=== PATIENT | female | born 1990 | race Caucasian/White ===

== ENCOUNTER 2021-04-21 11:15 | Outpatient (REF) | payer OTHER, SELFPAY ==
[2021-04-21 14:06] LABS: MANUAL DIFF FLAG NO
[2021-04-21 14:18] LABS: Basophils Percent Auto 0.5 % (0-2); Eosinophils Absolute Auto 0.3 X10*3/uL (0.0-0.4); Eosinophils Percent Auto 5.1 % (0-4); Hematocrit 41.6 % (37.0-47.0); Hemoglobin 13.9 g/dl (12.0-16.0); Imm Gran Abs Auto 0.02 X10*3/uL (0.00-0.03); Imm Gran Pct Auto 0.3 % (0.0-0.4); Lymphocytes Absolute Auto 1.3 X10*3/uL (1.2-4.9); Lymphocytes Percent Auto 21.7 % (20-40); Mean Corpuscular HGB Conc 33.4 g/dl (31.0-35.0); Mean Corpuscular Hemoglobin 30.9 pg (27.0-33.0); Mean Corpuscular Volume 92.4 fL (80.0-98.0); Mean Platelet Volume 9.6 fL (9.4-12.3); Monocytes Absolute Auto 0.4 X10*3/uL (0.1-1.2); Monocytes Percent Auto 6.8 % (2-11); Neutrophils Absolute Auto 3.9 x10*3/uL (2.0-8.3); Neutrophils Percent Auto 65.6 % (45-73); Platelet Count 199 X10*3/uL (160-400); Red Cell Distribution Width 12.1 % (11.0-16.0); White Blood Count 5.9 X10*3/uL (4.8-10.8)
[2021-04-21 14:32] LABS: Anion Gap 12 (12-20); Blood Urea Nitrogen 9 mg/dL (9-16); Calcium 8.8 mg/dL (8.4-10.2); Carbon Dioxide 25 mmol/L (22-29); Chloride 108 mmol/L (96-108); Cholesterol 131 mg/dL; Estimated Glomerular Filt Rate > 60; Glucose Random 73 mg/dL (60-115); Sodium 141 mmol/L (135-145)
== END 2021-04-21 11:16 | disposition home or self-care (01) ==
LOC: HO.10HDL 11:15
PROVIDERS: Visit Provider Internal Medicine
DX: F90.9 Attention-deficit hyperactivity disorder, unspecified type (principal); J30.1 Allergic rhinitis due to pollen
CPT/HCPCS: 36415; 80048; 82465; 85025

== ENCOUNTER 2021-07-13 11:11 | Outpatient (REF) | payer OTHER, SELFPAY ==
[2021-07-13 11:37] LABS: COVID-19 Test Negative (Negative); IDNOW Serial# 08D9AD1C
== END 2021-07-13 11:12 | disposition home or self-care (01) ==
LOC: HO.LNP 11:11
PROVIDERS: PCP Internal Medicine; Visit Provider Internal Medicine
DX: Z20.822 Contact with and (suspected) exposure to COVID-19 (principal)
CPT/HCPCS: 87635

== ENCOUNTER 2021-07-22 10:26 | Outpatient (REF) | payer OTHER, SELFPAY ==
[2021-07-22 10:46] LABS: COVID-19 Test Negative (Negative)
== END 2021-07-22 10:27 | disposition home or self-care (01) ==
LOC: HO.LNP 10:26
PROVIDERS: PCP Internal Medicine; Visit Provider Internal Medicine
DX: Z20.822 Contact with and (suspected) exposure to COVID-19 (principal)
CPT/HCPCS: 87635

== ENCOUNTER 2022-09-02 12:36 | Outpatient (REF) | payer OTHER, SELFPAY ==
[2022-09-02 13:21] LABS: MANUAL DIFF FLAG NO
[2022-09-02 13:30] LABS: Basophils Percent Auto 0.4 % (0-2); Eosinophils Absolute Auto 0.2 X10*3/uL (0.0-0.4); Eosinophils Percent Auto 3.1 % (0-4); Hematocrit 43.3 % (37.0-47.0); Hemoglobin 14.4 g/dl (12.0-16.0); Imm Gran Abs Auto 0.02 X10*3/uL (0.00-0.03); Imm Gran Pct Auto 0.3 % (0.0-0.4); Lymphocytes Absolute Auto 1.6 X10*3/uL (1.2-4.9); Mean Corpuscular HGB Conc 33.3 g/dl (31.0-35.0); Mean Corpuscular Hemoglobin 30.5 pg (27.0-33.0); Mean Corpuscular Volume 91.7 fL (80.0-98.0); Monocytes Absolute Auto 0.4 X10*3/uL (0.1-1.2); Monocytes Percent Auto 6.6 % (2-11); Neutrophils Absolute Auto 4.4 x10*3/uL (2.0-8.3); Neutrophils Percent Auto 65.6 % (45-73); Platelet Count 220 X10*3/uL (160-400); Red Blood Count 4.72 X10*6/uL (4.20-5.50); White Blood Count 6.7 X10*3/uL (4.8-10.8)
[2022-09-02 14:12] LABS: Anion Gap 12 (12-20); Blood Urea Nitrogen 11 mg/dL (9-16); Calcium 9.1 mg/dL (8.4-10.2); Carbon Dioxide 26 mmol/L (22-29); Chloride 107 mmol/L (96-108); Cholesterol 161 mg/dL; Estimated Glomerular Filt Rate > 60; Glucose Random 87 mg/dL (60-115); Sodium 141 mmol/L (135-145)
[2022-09-02 14:26] LABS: Vitamin D 25-OH Total 73.4 ng/mL (>30)
== END 2022-09-02 12:37 | disposition home or self-care (01) ==
LOC: HO.10HDL 12:36
PROVIDERS: Visit Provider Internal Medicine
DX: Z00.00 Encounter for general adult medical examination without abnormal findings (principal); E55.9 Vitamin D deficiency, unspecified
CPT/HCPCS: 36415; 80048; 82306; 82465; 85025

== ENCOUNTER 2023-03-02 10:39 | Outpatient (REF) | payer OTHER, SELFPAY ==
--- NOTE | ~2023-03-02 | US_ITS ---
EXAMINATION: US ABDOMEN COMPLETE CLINICAL INFORMATION: Abdominal pain. COMPARISON: Ultrasound abdomen complete 06/09/2016. TECHNIQUE: Real-time imaging of the abdominal viscera. Technically difficult study secondary to body habitus. FINDINGS: PANCREAS: Normal. ABDOMINAL AORTA: The proximal, mid, and distal segments are normal in caliber. INFERIOR VENA CAVA: Visualized portions are normal. LIVER: The liver is normal in size. The liver contour is normal. Parenchymal echogenicity is normal. No focal hepatic lesion. There is no intrahepatic biliary duct dilatation seen. GALLBLADDER: The gallbladder is physiologically distended without evidence of stones, sludge, polyps, wall thickening or pericholecystic fluid. COMMON BILE DUCT: Normal in caliber measuring 0.3 cm in diameter. RIGHT KIDNEY: Normal. No hydronephrosis. No renal calculi or focal parenchymal lesions. The kidney measures 11.3 cm in maximum dimension. LEFT KIDNEY: Normal. No hydronephrosis. No renal calculi or focal parenchymal lesions. The kidney measures 10.8 cm in maximum dimension. SPLEEN: Normal. The spleen measures 9.5 cm in maximum dimension. FREE FLUID: None. US/US abdomen complete IMPRESSION: Negative exam.
--- NOTE | ~2023-03-02 | US_ITS ---
Indication: Pain EXAMINATION: Pelvic ultrasound transabdominal The narrow gauge operator is unable to perform the transvaginal exam. States patient emotionally unstable with no history of pelvic exams. On the limited imaging submitted the uterus appears to be measuring 7.6 x 3.3 x 4.9 cm. Incompletely seen. Anteverted. . The endometrial canal is only partially seen. Measured by the narrow gauge operator at 8 mm but poorly delineated.. The ovaries are not visualized. No free fluid on the imaging submitted. US/US pelvic complete IMPRESSION: Significantly limited exam as described. Transvaginal was not performed. The ovaries are not seen. No free fluid is identified transabdominally.
== END 2023-03-02 10:40 | disposition home or self-care (01) ==
LOC: HO.HMGCX 10:39
PROVIDERS: PCP Internal Medicine; Visit Provider Internal Medicine
DX: R10.9 Unspecified abdominal pain (principal)
CPT/HCPCS: 76700; 76856

== ENCOUNTER 2023-03-05 12:08 | Emergency (ER) | payer OTHER, SELFPAY ==
--- NOTE | ~2023-03-05 | XR_ITS ---
EXAMINATION: XR ABDOMEN KUB CLINICAL INDICATION: Abdominal pain. Constipation. COMPARISON: None available. TECHNIQUE: AP view of the abdomen. FINDINGS: No dilated air-filled loops of small bowel to suggest an obstructive process. Mild colonic stool burden. No acute osseous abnormality. Visualized lung bases are well aerated. XR/XR KUB IMPRESSION: Mild colonic stool burden.
[2023-03-05 12:15] VITALS: BP 115/63; PULSE 81; RESP 18; TEMP 36.7; BMI 16.5
--- NOTE | 2023-03-05 12:15 | ED_ITS ---
HPI - Abdominal Pain General Chief Complaint: Abdominal Pain Stated Complaint: severe abd pain Time Seen by Provider: 03/05/23 14:26 Source: patient, family and RN notes reviewed Mode of arrival: ambulatory Limitations: altered mental status History of Present Illness HPI narrative: This is a [id number]-female, with a hx of low functioning disabilities presenting to the emergency department, accompanied by her mother and father, with complaints of ongoing abdominal pain for the last several months worsening over the last 3-4 days. Patient crying, asking for mother. When asked where her stomach pain is, she points in the left lower quadrant. She has been seen by her primary care physician for abdominal pain, where he ordered a pelvic ultrasound last week however they do not know the results of this. The pelvic ultrasound was limited secondary to patient inability to tolerate examination. Patient has been eating and drinking without difficulty. No nausea or vomiting. Mother is unsure about bowel habits but believes that she has not been regular. When asked, patient reports that she has no clue when the last time she moved her bowels was. No other complaints or concerns at this time. MD elicited complaint: abdominal pain Pertinent past history: constipation Onset (ago): month(s) Pain Consistency: constant Location: LLQ Associated symptoms: denies other symptoms Related Data Previous Rx's Medication Instructions Recorded docusate calcium 240 mg capsule 240 mg PO DAILY #14 caps 03/05/23 polyethylene glycol 3350 17 17 g PO DAILY 2 weeks #238 grams 03/05/23 gram/dose oral powder (Miralax) Allergies Allergy/AdvReac Type Severity Reaction Status Date / Time No Known Allergies Allergy Verified 03/05/23 12:15 Review of Systems Review of Systems Yes all other systems are reviewed and are negative Constitutional: Reports as per [facility] Social History Social History Advance Directives: No Advance Directives Information Provided: No Physical Exam ED Vital Signs: Vital Signs - 24 hr 03/05/23 12:15 Temperature 98.1 F Pulse Rate 81 Respiratory Rate 18 Blood Pressure 115/63 Oxygen Delivery Method Room Air BMI result Body Mass Index 16.5 Const General: cooperative and comfortable Limitations: behavioral limitations HENMT Head: Yes normal to inspection, Yes normocephalic and Yes atraumatic Ears: hearing grossly normal bilaterally General nose exam: Normal external nose present Face and sinus: Yes normal facial exam Mouth: Normal oral and palatal mucosa present, oropharynx normal and moist mucous membranes Throat: Yes posterior oropharynx normal Eyes General: appearance normal, both eyes and all related structures Eyelids: Yes eyelids normal Conjunctivae: conjunctivae normal Sclerae: sclerae normal Pupils: Equal, round and reactive pupils present EOM: EOMs intact bilaterally Neck Neck: Yes normal visual inspection, Yes full ROM and Yes no lymphadenopathy Lymphatic: no lymphadenopathy noted Chest Chest palpation & inspection: normal inspection of the chest Resp Effort & Inspection: normal respiratory effort and able to speak in complete sentences Auscultation: clear to auscultation bilaterally, no crackles, no rales, no rhonchi and no wheezes Cardio Rate: regular rate Rhythm: regular rhythm Heart sounds: S1 normal heart sound present and S2 normal heart sound present GI Other: Abdomen is soft, nontender, nondistended, hypoactive bowel sounds present Inspection: Yes normal to inspection Skin General skin exam: no rashes or lesions noted Trauma: no lacerations or abrasions Wounds: no wounds Neuro General: moves all extremities Cranial nerves: Yes Equal, round and reactive pupils present Extrem General: Yes normal to inspection Right upper extremity: normal to inspection Left upper extremity: normal to inspection Right lower extremity: normal to inspection Left lower extremity: normal to inspection Course Course Course Narrative: This is an RME: Additional HPI, ROS, PE not included below will be deferred to primary provider. This is a 76-[id number]-female, with a hx of low functioning disabilities presenting to the emergency department with complaints of ongoing abdominal pain for the last several months. Patient with intellectual disability, crying, asking for mother. When asked where her stomach pain is she points in the left lower quadrant. She has been seen by her primary care physician for abdominal pain, where he ordered a pelvic ultrasound last week however they do not know the results of this. The pelvic ultrasound was limited secondary to patient inability to tolerate examination. Patient has been eating and drinking okay. No nausea or vomiting. Mother is unsure about bowel habits but believes that she has not been regular. Plan: labs, UA, will await further evaluation by primary provider for diagnostic imaging Medical Decision Making Medical Decision Making MDM Narrative: 32 year old female, with a hx of intellectual disabilities, presenting to the emergency department for abdominal pain for the last couple weeks. She was seen at her primary care physician where she had ultrasound of her pelvis, transvaginal was not performed, the ovaries were not seen. There is no free fluid trans abdominally. Vital signs stable, patient is afebrile. Tearful stating that she does not want the in the emergency room and does not want to stay the entire night in the hospital. Patient redirectable. On examination, abdomen is soft, nontender, nondistended. Labs were obtained revealing no leukocytosis, liver enzymes within normal limits. Electrolytes normal. Will obtain KUB x-ray for evaluation of constipation. Differential Diagnosis Differential Diagnoses: The differential diagnosis associated with the presentation includes Constipation, appendicitis-unlikely bowel obstruction-unlikely, cholelithiasis, cholecystitis, acute abdomen-unlikely Admission/Observation Consideration of admission/observation: Escalation of care including admission/observation considered Patient would have been admitted to the hospital had her work up had any findings where hospital admission was appropriate and her clinical presentation warranted hospital admission. Lab Data [facility] Lab Attestation statement: I reviewed the patient's lab results. See [facility] 03/05/23 12:39 03/05/23 12:39 Labs: Lab Results 03/05/23 Range/Units 12:39 WBC 7.9 (4.8-10.8) X10*3/uL RBC 4.86 (4.20-5.50) X10*6/uL Hgb 15.3 (12.0-16.0) g/dl Hct 45.2 (37.0-47.0) % MCV 93.0 (80.0-98.0) fL MCH 31.5 (27.0-33.0) pg MCHC 33.8 (31.0-35.0) g/dl RDW 12.0 (11.0-16.0) % Plt Count 216 (160-400) X10*3/uL MPV 8.9 L (9.4-12.3) fL Immature Gran % (Auto) 0.4 (0.0-0.4) % Neut % (Auto) 73.8 H (45-73) % Lymph % (Auto) 17.0 L (20-40) % [place] % (Auto) 6.1 (2-11) % Eos % (Auto) 2.3 (0-4) % Baso % (Auto) 0.4 (0-2) % Lymph # (Auto) 1.4 (1.2-4.9) X10*3/uL [place] # (Auto) 0.5 (0.1-1.2) X10*3/uL Eos # (Auto) 0.2 (0.0-0.4) X10*3/uL Baso # (Auto) 0.0 (0.0-0.2) X10*3/uL Abs Immat Gran (auto) 0.03 (0.00-0.03) X10*3/uL Absolute Neuts (auto) 5.9 (2.0-8.3) x10*3/uL Absolute Nucleated RBC 0.000 (0.0-0.012) X10*3/uL Nucleated RBC % (auto) 0.0 (0.0-0.2) /100WBC Sodium 140 (135-145) mmol/L Potassium 4.2 (3.3-5.1) mmol/L Chloride 109 H (96-108) mmol/L Carbon Dioxide 22 (22-29) mmol/L Anion Gap 13 (12-20) BUN 8 L (9-16) mg/dL Creatinine 0.80 (0.5-1.4) mg/dL Estim Creat Clear Calc 73.4 Estimated GFR > 60 Random Glucose 106 (60-115) mg/dL Calcium 9.1 (8.4-10.2) mg/dL Total Bilirubin 0.5 (0.0-1.0) mg/dL Direct Bilirubin 0.2 (0.0-0.5) mg/dL AST 13 (5-31) U/L ALT 18 (0-31) U/L Alkaline Phosphatase 36 L (39-117) U/L Total Protein 6.8 (6.5-8.0) g/dL Albumin 4.4 (3.5-5.0) g/dL Lipase 42 (8-78) U/L Radiology Impression Discussion of test interpretation with radiology: I have reviewed the radiologist's reading. External Record Review External record reviewed: Inpatient record, Office record, Outpatient record, Prior outpatient labs, Prior outpatient radiology, Primary care record and Outside ED record Discharge Plan Discharge Clinical Impression: Constipation Qualifiers: Constipation type: unspecified constipation type Qualified Code(s): K59.00 - Constipation, unspecified Patient Disposition: Home, Self-Care Instructions: Constipation (ED), High Fiber Diet (ED) Additional Instructions: Your symptoms are likely due to constipation. Your x-ray of your abdomen shows a xjjb-pw-ymfsroit stool burden. Your lab workup today was reassuring. Please take prescribed medication as directed. You may discontinue if you develop diarrhea. Drink plenty of fluids including plenty of water. Eat a diet full of fiber. See attached for further recommendations on incorporating more fiber rich foods. Please follow-up with your primary care physician, call on Tuesday to make an appointment. If any new or worsening symptoms occur, including but not limited to worsening abdominal pain, inability to eat or drink, vomiting, fevers, please return for re-evaluation. Prescriptions: New polyethylene glycol 3350 [Miralax] 17 gram/dose powder 17 g PO DAILY 14 Days Qty: 238 0RF docusate calcium 240 mg capsule 240 mg PO DAILY Qty: 14 0RF
[2023-03-05 12:44] LABS: MANUAL DIFF FLAG NO
[2023-03-05 12:54] LABS: Basophils Percent Auto 0.4 % (0-2); Eosinophils Absolute Auto 0.2 X10*3/uL (0.0-0.4); Eosinophils Percent Auto 2.3 % (0-4); Hematocrit 45.2 % (37.0-47.0); Hemoglobin 15.3 g/dl (12.0-16.0); Imm Gran Abs Auto 0.03 X10*3/uL (0.00-0.03); Imm Gran Pct Auto 0.4 % (0.0-0.4); Lymphocytes Absolute Auto 1.4 X10*3/uL (1.2-4.9); Mean Corpuscular HGB Conc 33.8 g/dl (31.0-35.0); Mean Corpuscular Hemoglobin 31.5 pg (27.0-33.0); Mean Platelet Volume 8.9 fL (9.4-12.3); Monocytes Absolute Auto 0.5 X10*3/uL (0.1-1.2); Monocytes Percent Auto 6.1 % (2-11); Neutrophils Absolute Auto 5.9 x10*3/uL (2.0-8.3); Neutrophils Percent Auto 73.8 % (45-73); Platelet Count 216 X10*3/uL (160-400); Red Blood Count 4.86 X10*6/uL (4.20-5.50); White Blood Count 7.9 X10*3/uL (4.8-10.8)
[2023-03-05 13:09] LABS: Alanine Aminotransferase 18 U/L (0-31); Albumin Level 4.4 g/dL (3.5-5.0); Alkaline Phosphatase 36 U/L (39-117); Anion Gap 13 (12-20); Aspartate Amino Transferase 13 U/L (5-31); Bilirubin Direct 0.2 mg/dL (0.0-0.5); Bilirubin Total 0.5 mg/dL (0.0-1.0); Blood Urea Nitrogen 8 mg/dL (9-16); Calcium 9.1 mg/dL (8.4-10.2); Carbon Dioxide 22 mmol/L (22-29); Chloride 109 mmol/L (96-108); Creatinine Clr Calc Pharmacy 73.4; Estimated Glomerular Filt Rate > 60; Glucose Random 106 mg/dL (60-115); Lipase 42 U/L (8-78); Potassium 4.2 mmol/L (3.3-5.1); Sodium 140 mmol/L (135-145); Total Protein 6.8 g/dL (6.5-8.0)
== END 2023-03-05 15:58 | disposition home or self-care (01) ==
PROVIDERS: Physician Assistant Medical; Emergency Provider Emergency Medicine Emergency Medical Services; PCP Internal Medicine
DX: K59.00 Constipation, unspecified (principal); R10.32 Left lower quadrant pain
CPT/HCPCS: 36415; 74018; 80048; 80076; 83690; 85025; 99283; 99284

== ENCOUNTER 2023-04-25 15:02 | Outpatient (REF) | payer OTHER, SELFPAY ==
[2023-04-25 17:04] LABS: Appearance Urine Clear; Color Urine Yellow; Glucose Urine UA Negative (Negative); Leukocyte Esterase Urine Small (1+) (Negative); Nitrite Urine Negative (Negative); PH 5.5 (5.0-9.0); UMIC TRIGGER UACC YES; Urine Blood Negative (Negative); Urine Ketones Negative (Negative); Urine Protein Negative (Neg-Trace)
[2023-04-25 17:51] LABS: Bacteria Urine Trace (None Seen); Hyaline Casts Urine 0-2 /LPF (0-2); UACC Culture Trigger YES
== END 2023-04-25 15:03 | disposition home or self-care (01) ==
LOC: HO.LAB 15:02
PROVIDERS: PCP Internal Medicine; Visit Provider Internal Medicine
DX: R30.0 Dysuria (principal)
CPT/HCPCS: 81001; 81003; 87086

== ENCOUNTER 2023-04-27 11:02 | Outpatient (REF) | payer OTHER, SELFPAY ==
[2023-04-27 12:11] LABS: Appearance Urine Clear; Color Urine Yellow; Glucose Urine UA Negative (Negative); Leukocyte Esterase Urine Trace (Negative); Nitrite Urine Negative (Negative); PH 5.5 (5.0-9.0); UMIC TRIGGER UACC YES; Urine Blood Negative (Negative); Urine Ketones Negative (Negative); Urine Protein Negative (Neg-Trace)
[2023-04-27 12:19] LABS: Bacteria Urine Trace (None Seen); Hyaline Casts Urine 0-2 /LPF (0-2); RBC Urine 0-2 /HPF (0-2); UACC Culture Trigger YES
== END 2023-04-27 11:03 | disposition home or self-care (01) ==
LOC: HO.LAB 11:02
PROVIDERS: PCP Internal Medicine; Visit Provider Internal Medicine
DX: R30.0 Dysuria (principal)
CPT/HCPCS: 81001; 87086

== ENCOUNTER 2023-05-18 10:06 | Outpatient (REF) | payer OTHER, SELFPAY ==
[2023-05-19 13:49] LABS: Gliadin Deamidated IgA Ab <1.0 U/mL; Gliadin Deamidated IgG Ab <1.0 U/mL; Transglutaminase Ab IgG <1.0 U/mL; Transglutaminase IgA <1.0 U/mL
[2023-05-19 16:23] LABS: Immunoglobulin A 86 mg/dL (47-310)
[2023-05-21 10:58] LABS: Endomysial IgA Antibody Negative (Negative)
== END 2023-05-18 10:07 | disposition home or self-care (01) ==
LOC: HO.10HDL 10:06
PROVIDERS: Visit Provider Internal Medicine
DX: R10.31 Right lower quadrant pain (principal); K58.8 Other irritable bowel syndrome
CPT/HCPCS: 36415; 82784; 86231; 86258; 86364

== ENCOUNTER 2024-10-12 09:45 | Outpatient (AMB) | payer MEDICARE, MEDICAID, SELFPAY ==
[2024-10-12 10:12] VITALS: BP 116/70; PULSE 63; TEMP 36.5; O2SAT 99; BMI 18.3
--- NOTE | 2024-10-12 10:12 | MHC.PC.OV ---
Vital Signs 10/12/24 10:12 Height 5 ft 5 in Weight 110 lb BMI 18.3 BP 116/70 Pulse 63 Pulse Source Pulse Oximeter Temp 97.7 F Temp Source Axillary Pulse Oximetry (%) 99 Oxygen Delivery Method Room Air Intake Visit Reasons: Routine Book Editor Required: No Accompanied by: Mother Allergies No Known Allergies Allergy (Verified 10/12/24 10:15) Tobacco use date assessed: 10/12/24 Dental Screening Dental Screen Date: 10/12/24 Did you have a dental visit in the last 12 months?: Yes Did you have a dental problem in the last 6 months where you did not have access to dental care?: No HPI HPI Comments History of Present Illness Details The patient is a 34 year old female with a past med of developmental delay, ADHD. last seen by pcp in may for URI She currently has no concerns however she is overdue for labs. ROS CONSTITUTIONAL: Denies weight loss, fever and chills. HEENT: Denies changes in vision and hearing. RESPIRATORY: Denies SOB and cough. CV: Denies palpitations and CP GI: Denies abdominal pain, nausea, vomiting and diarrhea. : Denies dysuria and urinary frequency. MSK: Denies new myalgia and joint pain. SKIN: Denies rash and pruritus. NEUROLOGICAL: Denies headache PSYCHIATRIC: Denies recent changes in mood. PHYSICAL EXAM: GENERAL: Alert and oriented x 3. NAD EYES: EOMI. Anicteric. HENT: Moist mucous membranes. No scleral icterus. No cervical lymphadenopathy. LUNGS: Clear to auscultation bilaterally. CARDIOVASCULAR: Regular rate and rhythm. No murmur. No JVD. ABDOMEN: Soft, non-tender +bs EXTREMITIES: No edema. Non-tender. SKIN: No rashes or lesions. Warm. NEUROLOGIC: No focal neurological deficits. CN II-XII grossly intact PSYCHIATRIC: Cooperative. Appropriate mood and affect [facility] Family History Mother No problems noted. Father No problems noted. Social History Housing: House Patient Tobacco Use Status: Never used Tobacco e-Cigarette/Vaping Use: Never Used service: No Current occupational status: employed Cognitive needs: No Hearing needs: No Vision needs: Yes (rx glasses) Questionnaire PHQ-9 Over the last 2 weeks, how often have you been bothered by any of the following problems? 1. Little interest or pleasure in doing things: not at all 2. Feeling down, depressed, or hopeless: not at all 3. Trouble falling or staying asleep, or sleeping too much: not at all 4. Feeling tired or having little energy: not at all 5. Poor appetite or overeating: not at all 6. Feeling bad about yourself - or that you are a failure or have let yourself or your family down: not at all 7. Trouble concentrating on things, such as reading the newspaper or watching television: not at all 8. Moving or speaking so slowly that other people could have noticed. Or the opposite - being so fidgety or restless that you have been moving around a lot more than usual: not at all 9. Thoughts that you would be better off or of hurting yourself in some way: not at all Total score: 0 Depression Screening Interpretation: Negative Depression Screening Done: Yes [id number] - PHQ-9 Billing: Yes Source: Developed by Drs. Delmer Jessica, Nita Childers, Israel Islas and colleagues, with an educational kelton from [employer]. Thrive Questionnaire Date Thrive assessed: 10/12/24 I am a: Patient Within the past 12 months, did the food you bought not last and you didn't have the money to get more?: Never true Within the past 12 months, did you worry whether your food would run out before you got money to buy more?: Never true Do you have trouble paying for medicines?: No Do you have trouble getting transportation to medical appointments?: No Do you have trouble paying your heating and electricity bill?: No Do you have trouble taking care of your child, family member or friend?: No Do you have trouble with day-to-day activities such as bathing, preparing meals, shopping, managing finances, etc.?: No Are you currently unemployed and looking for a job?: No Are you interested in more education?: No THRIVE Score: 0 AUDIT C Alcohol Use Questionnaire (AUDIT-C) 1. How often do you have a drink containing alcohol?: Never 3. How often do you have six or more drinks on one occasion?: Never Total Score: 0 RAYRAY-7 AMB Questionnaire RAYRAY-7 Date ARYRAY - 7 assessed: 10/12/24 Feeling nervous, anxious, or on edge: 0 = Not at all Not being able to stop or control worryin = Not at all Worrying too much about different things: 0 = Not at all Trouble relaxin = Not at all Being so restless that it is hard to sit still: 0 = Not at all Becoming easily annoyed or irritable: 0 = Not at all Feeling afraid as if something awful might happen: 0 = Not at all Total RAYRAY-7 score (0-4 normal; 5-9 mild; 10-14 moderate; 15-21 severe): 0 Source: Developed by Drs. Delmer Jessica, Nita Childers, Israel Islas and colleagues, with an educational kelton from [employer]. Physical exam (Primary Care) Vital Signs: Last Vital Signs Temp 97.7 F 10/12/24 10:12 Pulse 63 10/12/24 10:12 BP 116/70 10/12/24 10:12 Pulse Ox 99 10/12/24 10:12 Oxygen Delivery Method Room Air 10/12/24 10:12 BMI result Body Mass Index 18.3 Tobacco/Smoking Status: Tobacco use Status Tobacco use date assessed 10/12/24 10/12/24 10:22 Patient Tobacco Use Status Never used Tobacco 10/12/24 10:22 e-Cigarette/Vaping Use Never Used 10/12/24 10:22 PHQ-9: PHQ-9 Score PHQ-9: Total score 0 10/12/24 10:24 Depression Screening Interpretation: Negative Thrive Assessment: Date of Thrive Assessment Date Thrive assessed 10/12/24 10/12/24 10:22 Coding Level of Care Code New Pt Level 3 (01704) Diagnoses Screening for metabolic disorder Z13.228 Screening, deficiency anemia, iron Z13.0 Screening for hyperlipidemia Z13.220 Encounter to establish care Z76.89 Attention deficit hyperactivity disorder (ADHD), unspecified ADHD type F90.9 Attention deficit-hyperactivity disorder type: unspecified Developmental delay, borderline R62.50 Additional Codes PHQ-9 - 76113 - PHQ-9 Billing: Yes ([id number]) Assessment & Plan Assessment & Plan (1) Screening for metabolic disorder: Code(s): Z13.228 - Encounter for screening for other metabolic disorders Category: Medical (2) Screening, deficiency anemia, iron: Code(s): Z13.0 - Encounter for screening for diseases of the blood and blood-forming organs and certain disorders involving the immune mechanism Category: Medical (3) Screening for hyperlipidemia: Code(s): Z13.220 - Encounter for screening for lipoid disorders Category: Medical (4) Encounter to establish care: Code(s): Z76.89 - Persons encountering health services in other specified circumstances Category: Medical (5) ADHD: Code(s): F90.9 - Attention-deficit hyperactivity disorder, unspecified type Category: Medical Qualifiers: Attention deficit-hyperactivity disorder type: unspecified Qualified Code(s): F90.9 - Attention-deficit hyperactivity disorder, unspecified type (6) Developmental delay, borderline: Code(s): R62.50 - Unspecified lack of expected normal physiological development in childhood Category: Medical Plan 34 yo to establish care past medical, surgical, social and family history reviewed Labs ordered F/up one year for physical exam Orders: Orders Complete Blood Count Auto Diff Today R20.9 - Unspecified disturbances of skin sensation, Z13.0 - Encounter for screening for diseases of the blood and blood-forming organs and certain disorders involving the immune mechanism, Z13.220 - Encounter for screening for lipoid disorders, Z13.228 - Encounter for screening for other metabolic disorders Lipid Panel Today R20.9 - Unspecified disturbances of skin sensation, Z13.0 - Encounter for screening for diseases of the blood and blood-forming organs and certain disorders involving the immune mechanism, Z13.220 - Encounter for screening for lipoid disorders, Z13.228 - Encounter for screening for other metabolic disorders TSH reflex Free T4 Today R20.9 - Unspecified disturbances of skin sensation, Z13.0 - Encounter for screening for diseases of the blood and blood-forming organs and certain disorders involving the immune mechanism, Z13.220 - Encounter for screening for lipoid disorders, Z13.228 - Encounter for screening for other metabolic disorders Comprehensive Met. Panel Today R20.9 - Unspecified disturbances of skin sensation, Z13.0 - Encounter for screening for diseases of the blood and blood-forming organs and certain disorders involving the immune mechanism, Z13.220 - Encounter for screening for lipoid disorders, Z13.228 - Encounter for screening for other metabolic disorders Medications: Discontinued docusate calcium Discontinued Reason: Patient no longer taking 240 mg PO DAILY 14 caps 0RF polyethylene glycol 3350 (Miralax) Discontinued Reason: Patient no longer taking 17 grams PO DAILY 2 weeks 238 grams 0RF
--- OUTSIDE RECORDS SUMMARY | 2024-10-12 10:33 | XMS_ITS | Encounter Summary ---
Author Organization [facility] Address [address] [place] [phone] Phone Care Team Providers Care Truss Maker Name Role Phone Mar Soni MD Primary Care Provider Unava ilable Encounter Details Date Type Department Care Team (Late st Contact Info) Description 04/12/2010 Documentation [facility] [address] [place], [place] [id number] Family Medicine, Physician [address] [place] [address] Social History Tobacco Use Types Packs/Day Years Used Date Smoking Tobacco: Never Assessed Comments Unknown Sex and Gender Information Value Date Recorded Sex Assigned at Not on file Legal Sex Female 4:53 PM EDT Gender Identity Not on file Sexual Orientation Not on file documented as of this encounter Plan of Treatment Not on file documented as of this encounter Visit Diagnoses Not on filedocumented in this encounter Care Teams Truss Maker Relationship Specialty Start Date End Date Mar Soni MD PCP - General 01/21/17 documented as of this encounter
--- OUTSIDE RECORDS SUMMARY | 2024-10-12 10:33 | XMS_ITS | Clinical Summary ---
Author Organization [facility] Address [address] [place] [phone] Phone Care Team Providers Care Tobacco Weigher Name Role Phone Mar Soni MD Primary Care Provider Unava ilable Immunizations Immunization Administration Dates Next Due DTP 10/10/1996, 3,1991,09/10,1991 H1N1 03/28/2009 Hep B, ped/adol 01/30/1997,09/14/1996,05/23/1996 Hib (PRP-T) 09/10/1992, 2,1991,07/13 IPV 10/10/1996, 3,1991,07/13 Influenza Split 03/10/2011 Influenza, injectable, trivalent 03/28/2009,1208/2007 MMR 06/12/1996,09/10/1992 Meningococcal Conj (Menactra) MCV4P 03/06/2007 Td (adult) (MBL), 2 Lf tetan us toxoid, PF, adsorbed 07/15/2003 Tdap 09/26/2008 Varicella 09/26/2008,01/30/1997 Family History Relation Name Status Comments Brother Alive Brother: Alive and well Father Alive Father: Alive a nd well Mother Alive Mother: Alive a nd well Niece Niece: ADD/ADHD Social History Tobacco Use Types Packs/Day Years Used Date Smoking Tobacco: Never Comments:Never smoker Comments Unknown Sex and Gender Information Value Date Recorded Sex Assigned at Not on file Legal Sex Female 4:53 PM EDT Gender Identity Not on file Sexual Orientation Not on file Last Filed Vital Signs Vital Sign Reading Time Taken Comments Blood Pressure 100/72 02/13/2014 12:00 AM EDT Pulse 80 09/14/2012 12:00 AM EDT Temperature 36.5 ??C (97.7 ??F) 05/25/2013 12:[address] Respiratory Rate - - Oxygen Saturation - - Inhaled Oxygen Concentration - - Weight 47.2 kg (104 lb) 02/13/2014 12:00 AM EDT Height 165.1 cm (5' 5 ) 02/13/2014 12:00 AM EDT Body Mass Index 17.31 02/13/2014 12:00 AM EDT Plan of Treatment Health Maintenance Due Date Last Done Comments DTaP,Tdap,and Td Vaccines (7 - Td or Tdap) 09/26/2018 09/26/2008, 07/15/2003, 10/10/1996, Additional history exists Influenza Vaccines (#1) 2024 03/10/20, 03/28/2009, 05/15/2008 COVID-19 Vaccine ( season) 2024 HIB Vaccines Completed 09/10/1992, 10/13, 1991, Additional history exists MMR Vaccines Completed 06/12/1996, 09/10/1992 IPV Vaccines Completed 10/10/1996, 10/13, 1991, Additional history exists Hepatitis B Vaccines Completed 01/30/1997, 09/14/1996, 05/23/1996 Meningococcal Vaccine Aged Out 03/06/2007 No keegan davide eligible based on patient's age to complete this topic Varicella Vaccines Completed 09/26/2008, 01/30/1997 HPV Vaccines Aged Out No longer eligi ble based on patient's age to complete this topic Hepatitis A Vaccines Aged Out No long er eligible based on patient's age to complete this topic Men B Vaccine Aged Out No longer elig ible based on patient's age to complete this topic Pneumococcal Vaccine Aged Out No long er eligible based on patient's age to complete this topic Care Teams Tobacco Weigher Relationship Specialty Start Date End Date Mar Soni MD PCP - General 01/21/17
--- OUTSIDE RECORDS SUMMARY | 2024-10-12 10:33 | XMS_ITS | Encounter Summary ---
Author Organization [facility] Address [address] [place] [phone] Phone Care Team Providers Care Yarn Weight And Strength Tester Name Role Phone Mar Soni MD Primary Care Provider Unava ilable Encounter Details Date Type Department Care Team (Late st Contact Info) Description 01/27/2017 Conversion Encounter [facility] - [address] [id number] Social History Tobacco Use Types Packs/Day Years [...] on filedocumented in this encounter Care Teams Yarn Weight And Strength Tester Relationship Specialty Start Date End Date Mar Soni MD PCP - General 01/21/17 documented as of this encounter
--- OUTSIDE RECORDS SUMMARY | 2024-10-12 10:33 | XMS_ITS | Encounter Summary ---
Author Organization [facility] Address [address] [place] [phone] Phone Care Team Providers Care Orthopaedic Surgeon Name Role Phone Mar Soni MD Primary Care Provider Unava ilable Encounter Details Date Type Department Care Team (Late st Contact Info) Description 03/11/2014 Documentation EM Family Medicine [address] [place], [place] [phone] Family Medicine, Physician [address] [place] [address] Social History Tobacco Use Types Packs/Day Years [...] on filedocumented in this encounter Care Teams Orthopaedic Surgeon Relationship Specialty Start Date End Date Mar Soni MD PCP - General 01/21/17 documented as of this encounter
== END 2024-10-12 10:37 | disposition home or self-care (01) ==
LOC: HO.HMCHD 09:46
PROVIDERS: PCP Internal Medicine; Visit Provider Internal Medicine
DX: Z13.228 Encounter for screening for other metabolic disorders (principal); Z13.0 Encounter for screening for diseases of the blood and blood-forming organs and certain disorders involving the immune mechanism; Z13.220 Encounter for screening for lipoid disorders; Z76.89 Persons encountering health services in other specified circumstances; F90.9 Attention-deficit hyperactivity disorder, unspecified type; R62.50 Unspecified lack of expected normal physiological development in childhood

== ENCOUNTER → 2024-10-12 09:45 | Outpatient (BNVA) | payer MEDICARE, MEDICAID, SELFPAY | PROVIDERS: PCP Internal Medicine; Visit Provider Internal Medicine | DX: F90.9 Attention-deficit hyperactivity disorder, unspecified type (principal); R62.50 Unspecified lack of expected normal physiological development in childhood; R20.9 Unspecified disturbances of skin sensation; Z76.89 Persons encountering health services in other specified circumstances | CPT/HCPCS: 96127; 99202 ==